=== PATIENT | male | born 2000 | race Caucasian/White ===

== ENCOUNTER 2018-11-04 20:38 | Emergency (ER) | payer SELFPAY ==
[~2018-11-04] VITALS: Wt 59.6 kg
[2018-11-04 20:39] VITALS: BP 128/85; PULSE 113; RESP 18
--- NOTE | 2018-11-04 21:42 | ERD ---
ER Documentation Chief Complaint Chief Complaint FEELING ANXIOUS, NERVOUS X'S 2 HOURS ROS All systems reviewed and are negative except as per history of present illness. PMhx/Soc History of Surgery: No Anesthesia Reaction: No Hx Neurological Disorder: No Hx Respiratory Disorders: No Hx Cardiac Disorders: No Hx Psychiatric Problems: Yes (Anxiety behavior. ) Hx Miscellaneous Medical Probl: No Hx Alcohol Use: No Hx Substance Use: No Hx Tobacco Use: Yes Smoking Status: Current some day smoker Physical Exam Vitals Vital Signs Date Temp Pulse Resp B/P (MAP) Pulse Ox O2 O2 Flow FiO2 Time Delivery Rate 11/04/18 97.9 113 18 128/85 100 20:39 (99) Physical Exam Const: No acute distress Head: Atraumatic Eyes: Normal Conjunctiva ENT: Normal External Ears, Nose and Mouth. Neck: Full range of motion. No meningismus. Resp: Clear to auscultation bilaterally Cardio: Regular rate and rhythm, no murmurs Abd: Soft, non tender, non distended. Normal bowel sounds Skin: No petechiae or rashes Back: No midline or flank tenderness Ext: No cyanosis, or edema Neur: Awake and alert Psych: Normal Mood and Affect. Appears anxious. Denies auditory/visual hallucinations/delusions. Not suicidal. Not homicidal. Has the capacity to decide for himself. Has good support system at home. Results 24 hrs Current Medications Medications Dose Sig/Osman Start Time Status Last (Trade) Ordered Route PRN Stop Time Admin Dose Reason Admin Aspirin 325 mg ONCE ONCE 11/04/18 DC (Aspirin) PO 22:00 11/04/18 22:01 Lorazepam 2 mg ONCE ONCE 11/04/18 DC (Ativan) PO 22:00 11/04/18 22:01 HARDIK JIMENEZ Nov 04, 2018 21:42
[2018-11-04] MEDS ORDERED: LORAZEPAM 1 MG TAB PO ONE (22:00)
[2018-11-04] MEDS ORDERED: ASPIRIN 325 MG TAB PO ONE (22:00)
--- NOTE | 2018-11-04 22:19 | ERD ---
ER Documentation Chief Complaint Chief Complaint FEELING ANXIOUS, NERVOUS X'S 2 HOURS HPI This is a 17-year-old male that presented to the emergency department stating he was feeling anxious. The patient is [place]-speaking. He states he has no past medical history. Indicates for the past 2 hours he has been feeling palpitations and severe anxiety. The patient indicates he has had similar symptoms in the past but it would be when he was consuming alcohol. He denies any illicit drug use and no recent alcohol use. He indicates that he has been seeing objects. He also has been hearing voices but is reluctant to say what t he voices are telling him to do. He denies any suicidal thoughts or ideations. ROS All systems reviewed and are negative except as per history of present illness. PMhx/Soc History of Surgery: No Anesthesia Reaction: No Hx Neurological Disorder: No Hx Respiratory Disorders: No Hx Cardiac Disorders: No Hx Psychiatric Problems: Yes (Anxiety behavior. ) Hx Miscellaneous Medical Probl: No Hx Alcohol Use: No Hx Substance Use: No Hx Tobacco Use: Yes Smoking Status: Current some day smoker Physical Exam Vitals Vital Signs Date Temp Pulse Resp B/P (MAP) Pulse Ox O2 O2 Flow FiO2 Time Delivery Rate 11/04/18 97.9 113 18 128/85 100 20:39 (99) Physical Exam Constitutional:Well-developed. Well-nourished. HEENT:Normocephalic. Atraumatic.Pupils were equal round reactive to light. Moist mucous membranes.No tonsillar exudates. Neck: No nuchal rigidity. No lymphadenopathy. No posterior cervical spine tenderness or step-offs. Respiratory: Not using accessory muscles of respiration.Lungs were clear to auscultation bilaterally. No rhonchi. No rales. No wheezing. Cardiovascular: Regular rate regular rhythm.No murmurs. No rubs were appreciated.S1, S2 normal. Distal pulses are palpable 2+ bilaterally. GI: Abdomen was soft. Nontender. Non Distended. No pulsatile abdominal masses or bruits. No rebound. No guarding. Bowel sounds were present and normal. Muscle skeletal: Full range of motion of both the upper and lower extremities bilaterally.Normal muscle tone.No assymetrical calf tenderness or swelling. Skin: No petechia, no purpura. No lesions on the palms or the soles of the feet. No maculopapular rash. NEURO: Patient was alert, awake, orientated x3.No facial droop. Gait observed and normal with no ataxia.Speech had regular rate and rhythm. No focal neurological deficits. PSYCH: Patient is moving around the room refusing to sit still. Patient is experiencing visual hallucinations. Patient appeared very guarded and anxious. Denied any suicidal homicidal thoughts or ideations. Result Diagram: 11/04/18 2255 Results 24 hrs Laboratory Tests Test 11/04/18 22:54 White Blood Count 8.4 10^3/ul Red Blood Count 4.89 10^6/ul Hemoglobin 15.2 g/dl Hematocrit 43.4 % Mean Corpuscular Volume 88.8 fl Mean Corpuscular Hemoglobin 31.1 pg Mean Corpuscular Hemoglobin Concent 35.0 g/dl Red Cell Distribution Width 12.4 % Platelet Count 384 10^3/UL Mean Platelet Volume 9.1 fl Immature Granulocytes % 0.200 % Neutrophils % 60.8 % Lymphocytes % 29.5 % Monocytes % 7.1 % Eosinophils % 1.3 % Basophils % 1.1 % Nucleated Red Blood Cells % 0.0 /100WBC Immature Granulocytes # 0.020 10^3/ul Neutrophils # 5.1 10^3/ul Lymphocytes # 2.5 10^3/ul Monocytes # 0.6 10^3/ul Eosinophils # 0.1 10^3/ul Basophils # 0.1 10^3/ul Nucleated Red Blood Cells # 0.0 10^3/ul Current Medications Medications Dose Sig/Osman Start Time Status Last (Trade) Ordered Route PRN Stop Time Admin Dose Reason Admin Aspirin 325 mg ONCE ONCE 11/04/18 DC (Aspirin) PO 22:00 11/04/18 22:01 Lorazepam 2 mg ONCE ONCE 11/04/18 DC 11/04/18 (Ativan) PO 22:00 23:12 11/04/18 22:01 Procedures/MDM This patient presented to the emergency department with feelings of anxiousness and new onset auditory hallucinations. This appeared to be acute psychosis and my differential diagnosis included but was not limited to ruling out life threatening causes of acute psychosis such as Wernickes encephalopathy, hypoxia, hypoglycemia, hypertensive encephalopathy, intracerebral hemorrhage, meningitis, poisoning. After my evaluation and workup on the patient I was able to exclude medical and reversible causes of the patients psychosis. It was my clinical impression the patients symptoms were an exacerbation of his psychiatric disorder; therefore, the patient was medically cleared by myself at this time for psychiatric evaluation and possible transfer. 12 Lead EKG tracing ordered and reviewed by myself showed: Sinus tach 101 bpm and no arrhythmia. ND interval normal. QRS duration normal. No ST segment elevation No ST segment depression. No changes consistent with acute ischemia. The patient did become severely anxious during medical assessment. Reassurance and verbal de-escalation were unsuccessful in calming the patient down. The agitation was impeding medical evaluation and treatment, with potential for the patient to harm themselves or others; therefore, pharmacological sedation was required. The patient pulled out his Bible and started preaching and speaking t o people who were not there. The patient is given a milligram of Ativan intravenously. I did feel the patient required a telemetry psych evaluation is a patient urine drug screen was normal and there did not appear to be any medical etiology that was causing his hallucinations. The patient was never suicidal homicidal. Nursing staff had approached me and indicated that the patient eloped without completion of treatment therefore never received a telemetry psychiatric evaluation. Departure Diagnosis: Primary Impression: Anxiety Additional Impression: Psychosis Psychosis type: unspecified psychosis type Qualified Codes: F29 - Unspecified psychosis not due to a substance or known physiological condition Condition: FLORECITA Duran MD Nov 04, 2018 22:19
== END 2018-11-05 04:23 | disposition left against medical advice (07) ==
LOC: FTE 20:38 → E/R 11-05 04:23
DX: F41.9 Anxiety disorder, unspecified (principal); R40.2142 Coma scale, eyes open, spontaneous, at arrival to emergency department; R40.2362 Coma scale, best motor response, obeys commands, at arrival to emergency department; R40.2252 Coma scale, best verbal response, oriented, at arrival to emergency department; F17.210 Nicotine dependence, cigarettes, uncomplicated; F29 Unspecified psychosis not due to a substance or known physiological condition; R07.9 Chest pain, unspecified
CPT/HCPCS: 71045; 80053; 80307; 85025; 93005